=== PATIENT | male | born 1960 | race Two or more races ===

== ENCOUNTER 2024-05-17 12:50 | Outpatient (AMB) | payer MEDICAID, SELFPAY ==
[2024-05-17 13:05] VITALS: BP 120/78; PULSE 80; RESP 18; TEMP 36.7; O2SAT 94; BMI 33.7
--- NOTE | 2024-05-17 13:05 | ORTHONT_ITS ---
Vital signs 05/17/24 13:05 Height 1.63 m Height Method Stated Weight 89.556 kg Weight Measurement Method Standing Scale BMI 33.7 BP 120/78 Blood Pressure Source Automatic Cuff Blood Pressure Location Right Upper Arm Position Sitting Respiration 18 Pulse 80 Pulse Source Monitor Temp 98.0 F Temp Source Temporal Artery Scan Pulse Oximetry (%) 94 L Oxygen Delivery Method Room Air Med/Allergies Allergies & Medications Allergies No Known Allergies Allergy (Verified 05/17/24 13:07) Medication Reconciliation amlodipine 10 mg tablet 10 mg PO QDAY 12/22/23 [History Confirmed 05/17/24] chlorthalidone 25 mg tablet 25 mg PO QDAY 12/22/23 [History Confirmed 05/17/24] doxazosin 8 mg tablet 8 mg PO QDAY 12/22/23 [History Confirmed 05/17/24] finerenone 20 mg tablet (Kerendia) 20 mg PO QDAY 12/22/23 [History Confirmed 05/17/24] glipizide 10 mg tablet 10 mg PO QDAY 12/22/23 [History Confirmed 05/17/24] metoprolol succinate 100 mg tablet,extended release 24 hr 100 mg PO QDAY 12/22/23 [History Confirmed 05/17/24] tirzepatide 5 mg/0.5 mL subcutaneous pen injector (Mounjaro) 5 mg subcut QWEEK 12/22/23 [History Confirmed 05/17/24] Exam Exam Patient is in no acute distress and is cooperative with the examination today. Breathing is nonlabored. In no respiratory distress. Bilateral extremities were evaluated and demonstrates sensation intact to light touch. Palpable pedal pulses are present. No significant edema is present. Bilateral hips were examined. The patient has no pain with log roll of the hips. Internal rotation to 30 degrees and external rotation to 30 degrees is painless. Negative FADIR. The left knee was examined. The left knee is in [varus] alignment. Range of motion from [0-115] degrees. Knee is stable to varus and valgus as well as AP translation with <5mm. Patient has a [negative] McMurrays. There is [no] pain with patellofemoral compression and [no] crepitus noted. The knee is [tender] to palpation [medially]. The right knee was also examined. The right knee is in [varus] alignment. Range of motion from [0-120] degrees. Knee is stable to varus and valgus as well as AP translation with <5mm. Patient has a [negative] McMurrays. There is [no] pain with patellofemoral compression and [no] crepitus noted. The knee is [tender] to palpation [medially]. Assessment and Plan Problem List (1) Degenerative arthritis of knee, bilateral: Status: Acute Plan: Patient is a 63-year-old male with bilateral knee pain and bilateral knee arthritis. We discussed nonoperative and operative options. We discussed with the patient that he is not a candidate for surgery given his open ulcers. He needs to see his primary care doctor. I do not think he is optimized medically. He does not know his hemoglobin A1c is. He would likely benefit from a vascular surgeon as he does not have great pulses and has nonhealing ulcers. I think he needs to get worked up for this. In addition he will likely need cardiac clearance Given that he has had venous stasis ulcers Office Procedures GNS Level of Care Nursing/Assessment Patient Status: Established Patient Nursing Assessment/Reassesment: Medication Reconciliation, Update PMH in EMR and Vital Signs Coordination of Care: Complex Care and Chronic Disease 1-5, Education Complex Pt/Fam, Consent,records obtained, informed consent, Results/Orders obtained and Staff clarify orders Special Needs: Language special needs Established Patient Charge Established Patient Point Assignment: 95 Established Patient Point Charge: EP Level 3 (80-115) MA Intake Visit Data Collection New Patient or Established: Established Patient (seen at [facility] within 3 years) Reason for Visit:: F/U SURGERY CLEARANCE Seen by Clinical Staff ONLY (RN/MA): No Verbal consent obtained for Telemed visit?: No Mechanical Striper Required: No PCP or OBGYN visit in last 3 months: Yes Hx Now: No Do You Feel Safe at Home: Yes Authorities Contacted: N/A Questionairres Past Medical History Past Medical History Have you ever been diagnosed with any of the following: Respiratory Problems Cough: No Smoking: No Smoking Exposure: No Musculoskeletal Problems Arthritis: Yes Subjective Visit Visit for: follow up visit Immunization / Flu Flu Vaccine in the Last 12 Months: No Flu Vaccine Exclusion Criteria: No Exclusion Criteria History of Present Illness Chief complaint: F/U SURGERY CLEARANCE Patient is a 63-year-old male who comes in with history of arthritis and venous ulcers coming for right knee evaluation. Patient has been currently been treated for various ulcers on his lower extremities particularly one that is currently present on his left lower leg. Patient currently has multiple non-healing skin all ulcers to his bilateral lower legs. He currently ambulates with a cane and takes 2 pain medications a day to help. He also elevates his legs for some relief. He denies any stiffness numbness or swelling to his right or left knee. Patient is looking to get knee surgery at some point to his right knee. He is currently retired. Patient has had 2 injections in the past Ambulatory data Ambulatory device: cane Treatments Improvement with previous injections: No Improvement with PT: No Improvement with NSAIDS: no Review of Systems Review of Systems: All systems negative unless otherwise noted in HPI.
== END 2024-05-17 13:42 | disposition home or self-care (01) ==
PROVIDERS: PCP Family Medicine; Referring Provider Family Medicine; Supervising Provider Orthopaedic Surgery Adult Reconstructive Orthopaedic Surgery; Visit Provider Orthopaedic Surgery Adult Reconstructive Orthopaedic Surgery
DX: M17.0 Bilateral primary osteoarthritis of knee (principal); M25.562 Pain in left knee; M25.561 Pain in right knee; L97.929 Non-pressure chronic ulcer of unspecified part of left lower leg with unspecified severity; L97.919 Non-pressure chronic ulcer of unspecified part of right lower leg with unspecified severity
CPT/HCPCS: 99213; G0463